=== PATIENT | male | born 1990 | race African-American/Black ===

== ENCOUNTER 2018-01-27 21:21 | Emergency (ER) | payer MEDICAID ==
[~2018-01-27] VITALS: Ht 175.3 cm; Wt 100.0 kg
[2018-01-27 22:05] VITALS: BP 134/74
== END 2018-01-28 00:06 | disposition left against medical advice (07) ==
LOC: ER 21:21
DX: S61.512A Laceration without foreign body of left wrist, initial encounter (principal); Y08.89XA Assault by other specified means, initial encounter; Y93.89 Activity, other specified; Y92.89 Other specified places as the place of occurrence of the external cause; Y99.8 Other external cause status; Z53.21 Procedure and treatment not carried out due to patient leaving prior to being seen by health care provider

== ENCOUNTER 2018-12-28 11:57 | Emergency (ER) | payer MEDICAID ==
[~2018-12-28] VITALS: Ht 165.1 cm; Wt 90.0 kg
[2018-12-28 12:01] VITALS: BP 154/84
== END 2018-12-28 14:21 | disposition left against medical advice (07) ==
LOC: ER 12:28
DX: K08.89 Other specified disorders of teeth and supporting structures (principal); Z53.21 Procedure and treatment not carried out due to patient leaving prior to being seen by health care provider

== ENCOUNTER 2019-05-28 08:15 | Emergency (ER) | payer MEDICAID ==
[~2019-05-28] VITALS: Ht 175.3 cm; Wt 99.0 kg
[2019-05-28 08:22] VITALS: BP 143/79
[2019-05-28] MEDS ORDERED: LIDOCAINE HCL 1% 20ML VIAL (Pyxis) INJ INFIL ONE (09:15)
== END 2019-05-28 10:35 | disposition home or self-care (01) ==
LOC: ER 08:15
DX: L02.01 Cutaneous abscess of face (principal)
CPT/HCPCS: 10060; 99283; J3490